=== PATIENT | male | born 1980 | race Hispanic/Latino ===

== ENCOUNTER 2020-07-25 11:09 | Emergency (ER) | payer SELFPAY ==
[~2020-07-25] VITALS: Ht 165.1 cm; Wt 86.0 kg
[2020-07-25 12:50] LABS: HEMATOCRIT 45.5 % (39.0-50.0); HEMOGLOBIN 15.6 g/dl (14.0-18.0); IMMATURE GRANULOCYTES 0.5 % (0.0-5.0); MEAN CELL VOLUME 86.7 fL CALC (80.0-100.0); MEAN CORPUSCULAR HGB 29.7 pG CALC (26.0-32.0); MEAN CORPUSCULAR HGB CONC 34.3 g/dL CAL (32.0-36.0); NEUT# 3.08 thou/uL (1.82-7.42); RED BLOOD COUNT 5.25 mill/uL (4.70-6.10); RED CELL DISTRI WIDTH 12.5 % (11.5-15.5)
[2020-07-25 13:03] LABS: ALBUMIN 4.6 g/dL (3.2-5.0); ALKALINE PHOSPHATASE 86 u/l (38-126); ANION GAP 14 (6-22 (CALC)); BILIRUBIN, TOTAL 1.2 mg/dL (0.0-1.4); BUN 22 mg/dL (9-20); BUN/CREATININE RATIO 31 (12-20 (CALC)); CARBON DIOXIDE 26 mmol/l (22-30); CHLORIDE 102 mmol/l (95-108); CREATININE 0.7 mg/dL (0.7-1.3); GFR > 60 ML/MIN (>=60 (CALC)); GFR FOR AFR.AMER. > 60 ML/MIN (>=60 (CALC)); SGOT/AST 55 u/l (17-59); SODIUM 137 mmol/l (137-146); TOTAL PROTEIN 7.8 g/dL (6.3-8.2)
[2020-07-25 13:11] LABS: ACT PARTIAL THROMBO TIME 25.1 SECONDS (20.0-32.5); PROTHROMBIN TIME 10.4 SECONDS (9.0-12.5)
[2020-07-25 15:55] VITALS: BP 124/76
[2020-07-26] MEDS ORDERED: AUGMENTIN500TAB PO (11:20)
[2020-07-26] MEDS ORDERED: TOBREX OPTH5 ML/BTL OS (11:20)
== END 2020-07-25 15:55 | disposition home or self-care (01) | DRG 151 ==
LOC: ED 11:09
PROC: 2Y41X5Z Packing of Nasal Region using Packing Material (ICD-10-PCS; principal; 2020-07-25)
DX: R04.0 Epistaxis (principal); S00.83XA Contusion of other part of head, initial encounter; W50.0XXA Accidental hit or strike by another person, initial encounter

== ENCOUNTER 2020-07-26 11:04 | Emergency (ER) | payer SELFPAY ==
[~2020-07-26] VITALS: Ht 165.1 cm; Wt 75.0 kg
[2020-07-26] MEDS ORDERED: TOBREX OPTH5 ML/BTL OS (11:20)
[2020-07-26] MEDS ORDERED: AUGMENTIN500TAB PO (11:20)
[2020-07-26 11:32] VITALS: BP 146/77
== END 2020-07-26 11:35 | disposition home or self-care (01) | DRG 151 ==
LOC: ED 11:04
DX: R04.0 Epistaxis (principal); H10.9 Unspecified conjunctivitis; S00.83XD Contusion of other part of head, subsequent encounter; X58.XXXD Exposure to other specified factors, subsequent encounter

== ENCOUNTER 2020-07-27 09:20 | Emergency (ER) | payer SELFPAY ==
[~2020-07-27] VITALS: Ht 165.1 cm; Wt 81.8 kg
[~2020-07-27 09:20] MED LIST: AUGMENTIN500TAB PO; TOBREX OPTH5 ML/BTL OS
[2020-07-27 11:09] VITALS: BP 116/73
== END 2020-07-27 11:09 | disposition home or self-care (01) | DRG 951 ==
LOC: ED 09:20
DX: Z48.00 Encounter for change or removal of nonsurgical wound dressing (principal)